=== PATIENT | male | born 1995 | race Caucasian/White ===

== ENCOUNTER 2024-10-27 05:32 | Emergency (ER) | payer OTHER, SELFPAY ==
--- NOTE | ~2024-10-27 | CT_ITS ---
Noncontrast CT scan of the lumbar spine CLINICAL HISTORY: Back pain TECHNIQUE: Axial noncontrast imaging of the lumbar spine was performed. Sagittal and coronal reformat gianfranco images were constructed. Dose reduction technique was used on this scan by utilizing automated ex posure control and iterative reconstruction technique. The dose-length product (DLP) was 1347.31 mGy- cm. FINDINGS: There is no acute fracture or subluxation. Vertebral bodies maintain normal height and alig nment. At L1-L2, there is probable central disc protrusion/herniation with resultant mild to moderate thecal sac compression. There is moderate left neural foraminal narrowing. Right neural foramen preserved. At L2-L3, there is no definite disc bulge or herniation. There is minimal facet arthropathy. No centr al canal stenosis or definite neural foraminal narrowing. L3-L4, there is no definite disc bulge or herniation. No definite canal stenosis or neural foraminal narrowing. At L4-L5, there is probable diffuse disc bulge resulting in mild central canal stenosis. There is mod erate to advanced bilateral neural foraminal narrowing. At and L5-S1, there is mild diffuse disc bulge. No central canal stenosis. There is probable moderate bilateral neural foraminal narrowing. Paravertebral soft tissues are unremarkable. Impression: Probable central disc protrusion/herniation at L1-L2 with mild to moderate thecal sac compression and moderate left neural foraminal narrowing. Wvav-ux-szshkndj degenerative spondylosis at L4-L5 and L5-S1, as detailed above. Consider follow-up MR to further evaluate, as indicated. Reviewed, dictated and finalized at [facility]. SERVICER Impression: Probable central disc protrusion/herniation at L1-L2 with mild to moderate thec al sac compression and moderate left neural foraminal narrowing. Njrv-at-gtnqyghl degenerative spondylosis at L4-L5 and L5-S1, as detailed above . Consider follow-up MR to further evaluate, as indicated.
[2024-10-27 05:39] VITALS: BP 172/112; PULSE 102; RESP 16; TEMP 36.6; O2SAT 99
--- NOTE | 2024-10-27 05:56 | ED_ITS ---
HPI - Back Pain/Injury General Chief Complaint: Back Pain/Injury Stated Complaint: Back and leg pain Time Seen by Provider: 10/27/24 05:34 History of Present Illness HPI Narrative: Patient is a 29-year-old male who presents to the emergency department this morning complaining of lower back pain that radiates down his bilateral lower extremity. Patient states the pain started back in August and states that he was not doing anything when his lower back pain started he was just sitting on the couch. Denies any recent falls, car accidents, or heavy lifting. Patient also denies any loss of bowel or bladder function denies any numbness and tingling down his bilateral lower extremity. Patient states that he has been going to a chiropractor but does not believe that that has been helping his symptoms, however, the chiropractor informed him that he believes that he may have spinal stenosis. Patient is scheduled for an outpatient MRI but he has not had it yet. States that he is able to move his lower extremity but any movement causes him a lot of pain. Patient did drive himself to the emergency department and states that he took him an hour to be able to get out of bed and drive here even though he does not live far away due to the pain. Patient states that right now he has taken ibuprofen and Tylenol as needed for the pain which has not been touching his pain, prior to this he had some leftover Tylenol 3's which were helping with the pain. Patient denies any additional symptoms or concerns at this time. Related Data Allergies Allergy/AdvReac Type Severity Reaction Status Date / Time No Known Allergies Allergy Verified 10/27/24 05:33 Review of Systems Review of Systems: All systems are reviewed and are negative unless stated otherwise in the HPI. Exam Narrative: General: Alert, awake, afebrile, in no acute distress. HEENT: PERRL, no rhinorrhea, no post nasal drip, oropharynx clear. Neck: Trachea midline, no JVD, no lymphadenopathy. Cardiovascular: Regular rate and rhythm, no murmurs, rubs or gallops, no peripheral edema. Respiratory: Clear to auscultation bilaterally, no tachypnea, no wheezing, no rhonchi, no rubs, no respiratory distress. Abdomen: Soft, nontender, nondistended, no rebound, no guarding, no peritoneal signs. Musculoskeletal: No joint swelling or deformity, normal muscle tone, intact bilateral hip flexion and extension. Back: No and line tenderness to palpation over the cervical, thoracic or lumbar spine, no step-offs or deformities. Skin: No rashes or petechia, no signs of infection. Psychiatric: Alert and oriented, normal behavior and judgment for situation. Neurological: Alert and oriented to person, place, and time. Follows all commands. No neurological deficits, speech is clear and fluent. Course Vital Signs Vital signs: Vital Signs Temperature 98 F 10/27/24 05:39 Pulse Rate 102 H 10/27/24 05:39 Respiratory Rate 16 10/27/24 05:39 Blood Pressure 172/112 H 10/27/24 05:39 Pulse Oximetry 99 10/27/24 05:39 Oxygen Delivery Room Air 10/27/24 05:39 Temperature 98 F 10/27/24 05:39 Pulse Rate 72 10/27/24 06:20 Respiratory Rate 15 10/27/24 06:20 Blood Pressure 168/74 H 10/27/24 06:20 Pulse Oximetry 97 10/27/24 06:20 Oxygen Delivery Room Air 10/27/24 05:39 MDM - Back Pain/Injury MDM Narrative Medical decision making narrative: The patient was evaluated by myself in the emergency department. History is obtained from patient who is an independent historian and physical exam was performed. External medical records were reviewed at this time. Patient's administered 15 mg of IM Toradol. Imaging studies obtained included CT lumbar spine without IV contrast which was independently interpreted by me revealing : Probable central disc protrusion/herniation at L1-L2 with mild to moderate thecal sac compression and moderate left neural foraminal narrowing. Gkjh-wa-nqsahsni degenerative spondylosis at L4-L5 and L5-S1, as detailed above. Consider follow-up MR to further evaluate, as indicated. Patient was informed of these findings at bedside and provided with a printout of her CT report. He was informed that he will need to follow-up with Orthopedic Spine and he will need an MRI of his lumbar spine and patient is agreeable with this plan. He was informed that he will be started on a Medrol Dosepak to take and he is agreeable with this plan. Patient was administered 10 mg of IM Decadron at this time. Differential diagnosis considerations include compression fractures, herniated disc, nerve compression/sciatica. Comorbidities impacting this visit include none. I have evaluated and discussed social determinants of health with the patient that could potentially impact subsequent diagnosis and treatment plans. On repeat assessment of the patient, reevaluation revealed that the patient is doing well and is in no acute distress. Patient symptoms have improved since he arrived to our emergency department. Repeat vital signs were all reviewed and noted to be stable. Differential diagnosis and treatment plan were discussed with the patient at bedside. Patient agrees with discussion and after shared medical decision making agrees with discharge. All questions were answered to the patient's satisfaction. Patient will follow up with his PCP in 3-5 days. Patient was provided with strict return precautions and instructed to return to the emergency department if any new or worsening symptoms develop. The patient was discharged in stable condition. Discharge Plan Discharge Clinical Impression: Chronic lower back pain, Lumbar disc herniation Patient Disposition: Home, Self-Care Condition: Improved Instructions: Antibiotic Form, Lumbar Disc Herniation (ED), Back Pain (ED) Additional Instructions: Please follow-up with the spinal specialist, call today to set up a follow-up appointment to be seen within the next 3-5 days. Take the prescribed Medrol Dosepak as instructed in use the [place] as needed for pain with ibuprofen does not alleviate her symptoms. Return to the emergency department if any new or worsening symptoms develop. Patient Language: Bhutanese Prescriptions: New methylprednisolone [Medrol (Alex)] 4 mg tablets,dose pack See Rx Instructions .ROUTE .COMPLEX Qty: 21 0RF Rx Instructions: for 6 days hydrocodone-acetaminophen 5-325 mg tablet 1 tablet PO Q8H PRN (Reason: pain) Qty: 10 0RF Follow-up/Referrals: PHYSICIAN NOT ON STAFF,NONSTAFF [Non-Staff] - Aryan Keyes MD [Physician] - 3 Days Time of Disposition: 07:12
[2024-10-27] MEDS: KETOROLAC 30 MG/ML VIAL (*BKC) 15 MG IM (06:09)
[2024-10-27 06:20] VITALS: BP 168/74; PULSE 72; RESP 15; O2SAT 97
[2024-10-27] MEDS: dexAMETHasone SOD PHOS INJ 10 MG/ML 1 ML VIAL IM (07:21)
--- OUTSIDE RECORDS SUMMARY | 2024-10-28 03:47 | XMS_ITS | Continuity of Care Document ---
Author Organization [place] - [facility] , [facility] Address [address] [place] [address] Assessment No assessment recorded. Plan of Treatment Reminders Order Date Submit Date Provider Last Modified By Organization Details Last Modified Time Details Appointments None record ed. Lab None record ed. Referral None record ed. Procedures None record ed. Surgeries None record ed. Imaging None record ed. Medication Orders None record ed. Patient TargetsNo targets recorded. Patient InstructionsNo instructions recorded. Reason for Referral None Reported. Medical Equipment None Reported. Allergies No known drug allergies Medications Name Sig Start Date Stop Date Status Note LastModified by Organization Details LastModified Time magnesium active ADDED BY PATIENT : 200mg Not Available Not Available Not Available ibuprofen active ADDED BY PATIENT : 800mg Not Available Not Available Not Available Tylenol active ADDED BY PATIENT : 1000mg Not Available Not Available Not Available Tylenol-Code ine active ADDED BY PATIENT : 300/30 Not Available Not Available Not Available Vitals None Recorded Social History None recorded. Functional Status None recorded. Mental Status None recorded. Family History Nothing Reported. Medical History No medical history recorded. Past Encounters Encounter ID Performer Location Encounter Start Date Encounter Closed Date Diagnosis/Indication Diagnosis SNOMED-CT Code Diagnosis ICD10 Code Diagnosis Note [id number] SYD Melissa [facility] [address] [place] [address] 10/26/2024 13:50:30 10/26/2024 19:57:08 Acute low back pain [id number] M54.50 Back pain - Patient reports inability to sleep through the night, difficulty getting out of bed, and pain in legs and back, exacerbate d by flexing core muscles. Patient has a recent history of chiropract ic adjustment and suspects spinal stenosis. - Advised patient to visit the ER for immediate back pain management and evaluation .- Recommende d avoiding further chiropract ic adjustment s and to inform the ER about recent chiropract ic manipulati on.- ER visit suggested due to need for in person assessment for potential nerve compressio n requiring urgent imaging and treatment to avoid permanent damage.- Discussed potential treatments in ER including IV pain relief, muscle relaxants, steroids, and initiating imaging such as X-rays or in some cases MRI. Patient agreeable with treatment plan, Health Concerns Section Related Observation LastModified by Organization Detai ls LastModified Time None Recorded Concern Status LastModified by Organization Details LastModified Time None Recorded Payers Encounter Date Sequence Insurance Name Policy Number Policy Calderon Covered Member ID Calderon Member ID Guarantor Name 10/26/2024 1 [facility] [id number] Parveen Crew [id number] Parveen Crew 10/26/2024 3 *SELF PAY* [id number] Parveen Crew [id number] Parveen Crew Notes Date Note Type Note Provider Name and Address Organization Details Recorded Time 10/26/2024 text/html Call connected, patient greeted. Patient name, , telephone number and pharmacy, and location verified verbally with the patient. Telemedicine limitations reviewed, answered all questions the patient had about the telehealth interaction, and verbal consent obtained to treat. Clinician attests they are physically located in the following state at the time of visit: [place]. The patient also consents to the use of AI scribe technology. CC: Severe back pain with leg involvement HPI: Parveen Logan, a 30-year-old patient, reports experiencing severe back pain that has progressively worsened over the past few weeks, worse since Thursday. Last chiro adjustment was on Tuesday 10/24. The pain primarily manifests in the legs and intensifies with core muscle flexion, radiating down the legs and back, radiated to groin areas as well. The patient describes the pain as debilitating, preventing them from sleeping through the night and getting out of bed in the morning, despite taking Tylenol and ibuprofen. These medications offer only temporary relief after several hours. The patient has been unable to attend work due to the severity of the pain. Recently, the patient underwent a chiropractic adjustment, after which the pain significantly escalated the following day, further inhibiting mobility. Additionally, the patient experiences significant pain during attempts to use the bathroom and has been unable to have a bowel movement due to the associated discomfort. The patient notes pain in the groin area but denies involuntary bowel or bladder movements, specifically denying saddle anesthesia. The pain and symptoms have not been alleviated by chiropractic adjustments or sckz-soc-uzacgij medications. SYD Melissa [address] [place] [address] [address], [place], [address], [facility] 10/26/2024 14:01:14
--- OUTSIDE RECORDS SUMMARY | 2024-10-28 03:47 | XMS_ITS | Data Portability ---
Author Organization [place] - [facility] , [employer] [facility] Address [address] [place] [address] Assessment No assessment recorded. Plan of Treatment [...] SNOMED-CT Code Diagnosis ICD10 Code Diagnosis Note [id number] SYD Melissa [facility] [address] [place] [address] 10/26/2024 13:50:30 10/26/2024 19:57:08 Acute low back pain [id number] M54.50 Back pain - Patient reports inability [...] by Organization Details LastModified Time None Recorded Advance Directives Directive None Recorded Payers Encounter Date Sequence Insurance Name Policy Number Policy Calderon Covered Member ID Calderon Member ID Guarantor Name 10/26/2024 1 [facility] [id number] Parveen Crew [id number] Parveen Crew 10/26/2024 3 *SELF PAY* [id number] Parveen Crew [id number] Parveen Crew Notes Date Note Type Note [...] patient also consents to the use of [employer] scribe technology. CC: Severe back pain with [...] not been alleviated by chiropractic adjustments or gfgi-eon-jargcwo medications. SYD Melissa [address] [place] [address] [address], [place], [address], [facility] 10/26/2024 14:01:14
== END 2024-10-27 07:30 | disposition home or self-care (01) ==
PROVIDERS: Emergency Provider Emergency Medicine; PCP Family Medicine
DX: M51.26 Other intervertebral disc displacement, lumbar region (principal); G89.29 Other chronic pain
CPT/HCPCS: 72131; 96372; 99284; J1100; J1885